=== PATIENT | female | born 1995 | race African-American/Black ===

== ENCOUNTER 2016-08-15 07:22 | Outpatient (CLI) | payer OTHER | END 2016-08-15 23:59 | DX: Z36 Encounter for antenatal screening of mother (principal) ==

== ENCOUNTER 2016-09-21 09:53 | Outpatient (CLI) | payer OTHER ==
[2016-09-21 10:35] LABS: BASOPHILS % (AUTO) 0.5 %; EOSINOPHILS % (AUTO) 0.7 %; HGB - HEMOGLOBIN 11.9 g/dL (12.0-16.0); LYMPHOCYTES # (AUTO) 1.9 10^3/uL (1.5-3.5); LYMPHOCYTES % (AUTO) 33.7 %; MEAN CORPUSCULAR HEMOGLOBIN 29.5 pg (27.0-31.0); MEAN CORPUSCULAR VOLUME 84.2 fL (81.0-99.0); MEAN PLATELET VOLUME 7.3 fL (7.9-10.8); MONOCYTES # (AUTO) 0.4 10^3/uL (0.0-1.0); MONOCYTES % (AUTO) 7.1 %; NEUTROPHILS # (AUTO) 3.3 10^3/uL (1.5-6.6); RED BLOOD COUNT 4.03 10^6/uL (4.20-5.40); RED CELL DISTRIBUTION WIDTH 13.7 % (12.0-15.0); UNCORRECTED WHITE BLOOD COUNT 5.7 x10^3/uL; WHITE BLOOD COUNT 5.7 x10^3/uL (4.8-10.8)
[2016-09-21 10:42] LABS: BILIRUBIN,URINE NEGATIVE (NEGATIVE); PH,URINE 6.5 PH (5.0-7.5)
[2016-09-21 10:51] LABS: BUN - BLOOD UREA NITROGEN < 5 mg/dL (6-20); CARBON DIOXIDE - CO2 26 mmol/L (21-32); CHLORIDE 104 mmol/L (101-111); CREATININE 0.3 mg/dL (0.4-1.0); GFR - MDRD 334 (>89); GLUCOSE 93 mg/dL (70-100); POTASSIUM 2.6 mmol/L (3.5-5.0); SODIUM 137 mmol/L (135-145)
[2016-09-27 13:33] LABS: TEST RESULT REPORT (())
== END 2016-09-21 09:54 | disposition home or self-care (01) ==
LOC: LAB 09:53
PROVIDERS: ATTEND Nurse Practitioner Obstetrics & Gynecology
DX: Z36 Encounter for antenatal screening of mother (principal)
CPT/HCPCS: 36415; 80048; 81001; 81599; 85025; 86762; 86850; 86900; 86901; 87340; 87389

== ENCOUNTER 2016-09-21 16:39 | Observation (INO) | payer OTHER ==
[2016-09-21] MEDS ORDERED: SODIUM CHLORIDE FLUSH 0.9% 10 ML SYRINGE IVP ONE ×2 (16:53→21:31)
[2016-09-21] MEDS: DEXTROSE 5%-0.45% NACL 1,000 ML IV SCH (17:51)
[2016-09-21] MEDS: POTASSIUM CHLOR 10 MEQ/100 ML 100 ML IV SCH ×4 (17:52→23:50)
[2016-09-21] MEDS ORDERED: ACETAMINOPHEN 325 MG TABLET PO PRN (20:26)
[2016-09-21] MEDS ORDERED: diphenhydrAMINE 25 MG CAPSULE PO SCH (20:29)
[2016-09-21] MEDS ORDERED: DEXTROSE 5%-0.45% NACL 1,000 ML IV SCH (21:38)
[2016-09-21] MEDS: ONDANSETRON 4 MG/2 ML VIAL IVP PRN (21:41)
[2016-09-22] MEDS: DEXTROSE 5%-0.45% NACL 1,000 ML IV SCH (01:23)
[2016-09-22] MEDS: POTASSIUM CHLOR 10 MEQ/100 ML 100 ML IV SCH ×2 (01:54→04:01)
[2016-09-22] MEDS: ONDANSETRON 4 MG/2 ML VIAL IVP PRN (05:28)
[2016-09-22] MEDS ORDERED: SODIUM CHLORIDE FLUSH 0.9% 10 ML SYRINGE IVP ONE (07:51)
[2016-09-22 09:35] LABS: BUN - BLOOD UREA NITROGEN < 5 mg/dL (6-20); CALCIUM 8.6 mg/dL (8.5-10.3); CARBON DIOXIDE - CO2 21 mmol/L (21-32); CHLORIDE 107 mmol/L (101-111); CREATININE 0.3 mg/dL (0.4-1.0); GFR - MDRD 334 (>89); GLUCOSE 89 mg/dL (70-100); POTASSIUM 3.3 mmol/L (3.5-5.0); SODIUM 135 mmol/L (135-145)
[2016-09-22 12:16] VITALS: BP 120/70
--- NOTE | 2016-09-23 07:28 | HISTORY & PHYSICAL EXAMINATION ---
DATE OF ADMISSION: 09/21/2016 IDENTIFICATION: The patient is a 21-year-old G5, P2 AB1, ectopic 1 female whose LMP was June 20, 2016. This makes her 13 weeks and 3 days today. She has an EDC of 2016 confirmed with 8-week ultrasound. CHIEF COMPLAINT: Nausea and vomiting, hyperemesis. HISTORY OF PRESENT ILLNESS: The patient was seen in today at which time her labs were drawn and she was noted to have a potassium of 2.6. Her sodium was within normal limits. CBC showed a hemoglobin of 11.9 and platelets were normal as well as white count. She has been having difficulty keeping anything down. She has an order for Zofran, but was denied by insurance company. She was trying to keep her first trimester free of any Zofran because of concerns about anomalies. She states that her last 2 pregnancies had difficulties with hyperemesis gravidarum. These required IV fluid hydration. She also had one of these that required hospitalization. She gives a strong family history of hyperemesis, which includes her mother, as well as sister. She states she is having difficulty getting any fluids or foods down and is voiding only a minimal amount at this time. PAST MEDICAL HISTORY: Positive for hyperemesis gravidarum. PAST SURGICAL HISTORY: Negative for any C-sections. D and C, she did have an ectopic in the past with her first . ALLERGIES: NONE KNOWN. CURRENT MEDICATIONS: Those of Diclegis, as well as vitamins. HABITS: The patient denies use of alcohol, tobacco, or street or addictive drugs. 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 PHYSICAL EXAMINATION: The patient is a well-developed, well-nourished female. She is no acute distress at this time. Mucous membranes are dry. HEENT: Pupils are equal, round. Extraocular muscles are intact. There is no evidence of any scleral icterus. Mouth is clear with dry membranes. HEART: Regular rate and rhythm without murmurs. LUNGS: Nicolas are clear without rales or wheezes. BACK: No spinal or CVA tenderness noted. ABDOMEN: The patient was noted to have heart tones at her visit today. EXTREMITIES: DTRs are +2. There was no evidence of any clonus. IMPRESSION: 1. 13 weeks and 2 days. 2. Hyperemesis gravidarum with electrolyte imbalance. PLAN: We will administer IV fluids of D5 half normal with 10 of K runs. She will get 6 of these. She will have repeat electrolytes at midnight. If this is not sufficient, we will administer 4 more runs of potassium. Will also administer Zofran to help with her diet. JOB #: [id number] EXT JOB #:[id number] [facility]
== END 2016-09-22 10:45 | disposition home or self-care (01) ==
LOC: WFO 16:39 → OB 16:40 → WFO 18:17 → OB 18:18
PROVIDERS: ADMIT Obstetrics & Gynecology; ATTEND Obstetrics & Gynecology
DX: O21.1 Hyperemesis gravidarum with metabolic disturbance (principal); Z3A.13 13 weeks gestation of pregnancy; Z84.89 Family history of other specified conditions
CPT/HCPCS: 36415; 80048; 81001; 81599; 85025; 86762; 86850; 86900; 86901; 87340; 87389; 96361; 96374; 96376; A9270; G0378

== ENCOUNTER 2016-11-08 12:46 | Outpatient (CLI) | payer OTHER ==
--- NOTE | 2016-11-09 15:01 | Ultrasound Report ---
OB ULTRASOUND: 11/08/2016 CLINICAL INDICATION: anatomy. TECHNIQUE: Real-time scanning was performed with motor vehicle representative static images obtained. LAST MENSTRUAL PERIOD 06/19/2016 Clinical Age 20 weeks 2 days US Age 20 weeks 3 days EFW Hadlock 349 g EFW% Hadlock 50% Heart Rate 144 bpm EDC 03/26/2017 US EDC 03/25/2017 BPD [place] 20 weeks 3 days; Mean mm 47.5 HC [place] 20 weeks 4 days; Mean mm 181.7 AC [place] 20 weeks 3 days; Mean mm 151.6 FL Hadlock 20 weeks 2 days; Mean mm 32.9 Presentation moving Placental Location posterior Cervical Length 4.7 cm Amniotic Fluid 12.3 cm There is a single viable intrauterine gestation, in variable position. heart rate is 144 BPM. The placenta is posterior, without evidence of previa. Amniotic fluid volume is normal, with an ASHLEY of 12.3. By size, the fetus measures 20.5 weeks (20.3 weeks by LMP). The following anatomic structures were visualized and appear normal: The intracranial contents, including the ventricles and posterior fossa; the lips and orbits; the spine; the heart, including 4 chamber view and outflow tracts, and diaphragm; the abdominal contents, including the stomach, the bilateral kidneys, and urinary bladder, as well as a normal 3 vessel cord insertion; 4 limbs. No free fluid or adnexal lesion is appreciated. IMPRESSION: SINGLE VIABLE INTRAUTERINE GESTATION, WITH SIZE IN KEEPING WITH LMP DATING. NORMAL ANATOMIC SURVEY. [facility]
== END 2016-11-08 12:47 | disposition home or self-care (01) ==
LOC: DI 12:46
PROVIDERS: ATTEND Obstetrics & Gynecology
DX: Z36 Encounter for antenatal screening of mother (principal)
CPT/HCPCS: 76811

== ENCOUNTER 2017-02-27 17:01 | Outpatient (CLI) | payer OTHER | END 2017-02-27 17:02 | disposition home or self-care (01) | LOC: LAB.R 17:01 | PROVIDERS: ATTEND Obstetrics & Gynecology | DX: Z36.9 Encounter for antenatal screening, unspecified (principal); R82.99 Other abnormal findings in urine | CPT/HCPCS: 87081; 87086; 87797 ==

== ENCOUNTER 2017-03-07 04:43 | Outpatient (CLI) | payer OTHER ==
[2017-03-07 05:09] VITALS: BP 123/75
== END 2017-03-07 05:50 | disposition home or self-care (01) ==
LOC: WFO 04:43 → FBP 04:44 → WFO 05:50
PROVIDERS: ATTEND Obstetrics & Gynecology
DX: Z34.83 Encounter for supervision of other normal pregnancy, third trimester (principal)
CPT/HCPCS: 99213

== ENCOUNTER 2017-03-11 17:14 | Outpatient (CLI) | payer OTHER ==
[2017-03-11 20:58] VITALS: BP 132/78
== END 2017-03-11 21:06 | disposition home or self-care (01) ==
LOC: WFO 17:14 → FBP 17:16 → WFO 21:06
PROVIDERS: ATTEND Obstetrics & Gynecology
DX: Z34.83 Encounter for supervision of other normal pregnancy, third trimester (principal)
CPT/HCPCS: 99213

== ENCOUNTER 2017-03-11 23:33 | Inpatient (IN) | payer OTHER ==
[2017-03-12] MEDS ORDERED: LACTATED RINGERS 1,000 ML IV ONE (00:51)
[2017-03-12] MEDS ORDERED: SODIUM CHLORIDE FLUSH 0.9% 10 ML SYRINGE IVP ONE (00:52)
[2017-03-12] MEDS ORDERED: SODIUM CHLORIDE FLUSH 0.9% 10 ML SYRINGE IVP PRN ×2 (01:05→08:53)
[2017-03-12] MEDS ORDERED: PENICILLIN G POTASSIUM 5,000,000 UNIT in SODIUM CHLORIDE 0.9% MINIBAG 100 ML IV SCH (01:05)
[2017-03-12] MEDS: LACTATED RINGERS 1,000 ML IV SCH ×4 (01:51→10:25)
[2017-03-12 01:58] LABS: BASOPHILS % (AUTO) 0.1 %; EOSINOPHILS % (AUTO) 0.1 %; HCT - HEMATOCRIT 34.5 % (37.0-47.0); HGB - HEMOGLOBIN 10.9 g/dL (12.0-16.0); LYMPHOCYTES # (AUTO) 1.5 10^3/uL (1.5-3.5); LYMPHOCYTES % (AUTO) 10.5 %; MEAN CORPUSCULAR HEMOGLOBIN 24.8 pg (27.0-31.0); MEAN CORPUSCULAR HGB CONC 31.6 g/dL (32.0-36.0); MEAN CORPUSCULAR VOLUME 78.6 fL (81.0-99.0); MEAN PLATELET VOLUME 8.4 fL (7.9-10.8); MONOCYTES # (AUTO) 0.8 10^3/uL (0.0-1.0); MONOCYTES % (AUTO) 5.9 %; NEUTROPHILS # (AUTO) 11.6 10^3/uL (1.5-6.6); NEUTROPHILS % (AUTO) 83.4 %; NUCLEATED RED BLOOD CELLS AUTO 0.1 /100WBC; RED BLOOD COUNT 4.39 10^6/uL (4.20-5.40); RED CELL DISTRIBUTION WIDTH 16.8 % (12.0-15.0); UNCORRECTED WHITE BLOOD COUNT 13.9 x10^3/uL; WHITE BLOOD COUNT 13.9 x10^3/uL (4.8-10.8)
[2017-03-12] MEDS ORDERED: PENICILLIN G POTASSIUM 2,500,000 UNIT in SODIUM CHLORIDE 0.9% 100ML 100 ML IV SCH (05:45)
[2017-03-12] MEDS: SODIUM CHLORIDE FLUSH 0.9% 10 ML SYRINGE IVP SCH ×3 (06:16→20:26)
[2017-03-12] MEDS ORDERED: OXYTOCIN/SODIUM CHLORIDE 250 ML IV SCH (07:00)
[2017-03-12] MEDS ORDERED: fent/BUPIV 2 MCG/0.125% 250 ML EP ONE (08:41)
[2017-03-12] MEDS ORDERED: fentaNYL 100 MCG/2 ML VIAL IVP PRN (08:53)
[2017-03-12] MEDS ORDERED: LACTATED RINGERS 1,000 ML IV SCH ×2 (09:00→16:00)
[2017-03-12] MEDS ORDERED: ePHEDrine 50 MG/ML AMP IVP ONE (09:30)
[2017-03-12] MEDS ORDERED: ONDANSETRON 4 MG/2 ML VIAL IVP PRN (09:48)
[2017-03-12] MEDS: PENICILLIN G POTASSIUM 2,500,000 UNIT in SODIUM CHLORIDE 0.9% 100ML 100 ML IV SCH ×3 (10:40→19:55)
--- NOTE | 2017-03-12 12:09 | PROVIDER PROGRESS NOTE ---
Labor Progress Note - Uterine Monitoring Uterine Monitoring Mode: positive: External toco Contraction Frequency (min/apart): difficult to see Contraction Intensity: positive: Mild to moderate Uterine Resting Tone: positive: Soft - Monitoring Monitor Mode: positive: External ultrasound Heart Rate Baseline: 130 Heart Rate Variability: positive: Moderate (6-25 bmp) Accelerations: positive: Present, 15x15 Decelerations: positive: None Strip Review: positive: Category I - Vaginal Exam Dilation (in cm): 4 Effacement (%): 80 Station: -2 Cervical Position: Midposition - Labor Progress Note Labor Progress Note/Additional Text: pt had epidural placed and had Hypotension treated with fluids and ephedrine with good results. pit started and 4 miliunits now Will push pitocin
--- NOTE | 2017-03-12 12:14 | HISTORY & PHYSICAL EXAMINATION ---
Admit History - Instructions [place]/Slash: -Left hand click circles element as positive or present. -Right hand click slashes element as negative or not present. - Visit Reason Visit Reason: Contractions, Membranes rupture - : 5 Parity: 2 Care: positive: [facility] Complications This : positive: Other (GBS) Smoking Status: Never smoker - Mother's Labs GBS: positive: Group B Strep Positive Rubella Status: positive: Immune - Other Maternal History Other Maternal History: Pt came in last PM for contractions. no change sent home. SROM at 2300 clear fluid. Pt presented with Hx of GBS positive. PCN ordered. plan to get 2 doses in before starting pitocin. Meds/Allgy - Allergies Allergies/Adverse Reactions: Allergies Allergy/AdvReac Type Severity Reaction Status Date / Time No Known Drug Allergies Allergy Verified 09/21/16 20:46 Physical - Abdominal Exam Vital Signs: Temp Pulse Resp BP Pulse Ox 36.8 C 127 H 20 128/90 H 97 03/11/17 23:47 03/11/17 23:47 03/11/17 23:47 03/11/17 23:47 03/11/17 23:47
[2017-03-12] MEDS ORDERED: SODIUM CHLORIDE FLUSH 0.9% 10 ML SYRINGE IVP SCH (14:00)
[2017-03-12] MEDS ORDERED: LIDOCAINE-MPF 1% 5 ML VIAL ONE ×2 (15:23→15:32)
[2017-03-12] MEDS ORDERED: HYDROCORTISONE/PRAMOXINE 10 GM PR PRN (15:55)
[2017-03-12] MEDS ORDERED: HYDROCORTISONE 1% CREAM 28 GM TUBE PR PRN (15:55)
[2017-03-12] MEDS ORDERED: WITCH HAZEL/GLYCERIN 1 EACH MED..PAD TOP PRN (15:55)
[2017-03-12] MEDS ORDERED: OXYTOCIN/SODIUM CHLORIDE 250 ML IV ONE (15:55)
[2017-03-12] MEDS ORDERED: diphenhydrAMINE 25 MG CAPSULE PO PRN (15:55)
--- NOTE | 2017-03-12 16:06 | DELIVERY NOTE ---
Delivery Note - Labor Labor: positive: Spontaneous, Augmented by oxytocin - Delivery Method Infant Delivery Method: positive: Spontaneous vaginal delivery - Presentation Presentation: positive: Vertex, BLAZE - right occiput anterior - Nuchal Cord Nuchal Cord: positive: Present (X1 reduced at delivery) - Anesthetic Anesthetic Type: Anesthetic: positive: Lidocaine - 1% plain Volume: positive: Other - Amniotic Fluid Description Amniotic Fluid Description: positive: Clear - Episiotomy Type Episiotomy Type: positive: None - Laceration Laceration: positive: 2nd degree - Suture Suture Type: positive: Vicryl Suture Size: positive: 3-0 - Delivery Outcome Delivery Outcome: positive: Livebirth - [place] : positive: Placed in direct skin contact with mother, Bulb syringe, Martin used [place] sex: positive: Female - Cord Cord: positive: 3 vessels - Placenta Placenta: positive: Intact, Spontaneous - Estimated Blood Loss Estimated Blood Loss (in cc): 200 - Post Delivery Events Post Delivery Events: positive: No post delivery events - Delivery Comments (Free Text/Narrative) Delivery Comments (Free Text/Narrative): Pt prestnted to L&D for SROM at 2300 03/11/17. contraction were mild. because of her GBS +. pitocin was with held until second dose of PCN. Epidural was placed to 0902 but because of hypotension pit was not started at 1005. Pit was advanced to 10 lashawn units at which time good labor was achieved. She reached 9.5 cm at 1452 then art 1500 developed a strong need to push. Pt delivered at 1512 a live female with [place] of 9/9. over a second degree laceration. Placenta followed at 1518 was inspected and noted to be complete. her laceration was repaired with 3-0 vicril in the standard fashion. EBL 200 ml Manuelgth 6lb 11oz.
[2017-03-12] MEDS: IBUPROFEN 600 MG TABLET PO SCH ×2 (17:22→23:11)
[2017-03-12] MEDS: DOCUSATE SODIUM 100 MG CAPSULE PO SCH (20:26)
[2017-03-12] MEDS ORDERED: SIMETHICONE CHEW 80 MG TABLET PO SCH (22:00)
[2017-03-12] MEDS: ACETAMINOPHEN 325 MG TABLET PO PRN (23:11)
[2017-03-12] MEDS: oxyCODONE 5 MG TABLET PO PRN (23:11)
[2017-03-13] MEDS: oxyCODONE 5 MG TABLET PO PRN ×3 (04:10→14:07)
[2017-03-13] MEDS: ACETAMINOPHEN 325 MG TABLET PO PRN ×3 (04:10→14:07)
[2017-03-13] MEDS: IBUPROFEN 600 MG TABLET PO SCH ×3 (04:10→16:29)
[2017-03-13 06:22] LABS: BASOPHILS % (AUTO) 0.5 %; EOSINOPHILS # (AUTO) 0.1 10^3/uL (0.0-0.7); EOSINOPHILS % (AUTO) 0.9 %; HCT - HEMATOCRIT 29.3 % (37.0-47.0); HGB - HEMOGLOBIN 9.2 g/dL (12.0-16.0); LYMPHOCYTES # (AUTO) 2.2 10^3/uL (1.5-3.5); MEAN CORPUSCULAR HEMOGLOBIN 24.6 pg (27.0-31.0); MEAN CORPUSCULAR HGB CONC 31.5 g/dL (32.0-36.0); MEAN CORPUSCULAR VOLUME 78.3 fL (81.0-99.0); MEAN PLATELET VOLUME 8.5 fL (7.9-10.8); MONOCYTES # (AUTO) 0.9 10^3/uL (0.0-1.0); MONOCYTES % (AUTO) 9.8 %; NEUTROPHILS # (AUTO) 5.8 10^3/uL (1.5-6.6); NEUTROPHILS % (AUTO) 64.8 %; NUCLEATED RED BLOOD CELLS AUTO 0.1 /100WBC; RED BLOOD COUNT 3.74 10^6/uL (4.20-5.40); RED CELL DISTRIBUTION WIDTH 16.6 % (12.0-15.0); UNCORRECTED WHITE BLOOD COUNT 8.9 x10^3/uL; WHITE BLOOD COUNT 8.9 x10^3/uL (4.8-10.8)
--- NOTE | 2017-03-13 09:01 | PROVIDER PROGRESS NOTE ---
Subjective - Prog Note Date Prog Note Date: 03/13/17 Prog Note Time: 08:59 - Subjective Pt reports feeling: Improved (PPD#1 breast feeding without difficulty. Pain 07/06 , pt notes good pain control.) Objective - Vital Signs/Intake & Output Reviewed Vital Signs: Yes Vital Signs: Vital Signs x48h Pulse Resp BP Pulse Ox 03/13/17 02:24 81 16 108/62 100 Intake & Output: Intake & Output 03/10/17 03/11/17 03/12/17 03/13/17 23:59 23:59 23:59 23:59 Intake Total 5330 Output Total 2100 Balance 3230 - Objective General Appearance: positive: No acute distress, Alert Respiratory: positive: Chest non-tender, No respiratory distress Cardiovascular: positive: Regular rate & rhythm, No murmur Abdomen: positive: Non-tender, No organomegaly, Nml bowel sounds, Mass (U-2) Back: positive: Nml inspection. negative: CVA tenderness (R), CVA tenderness (L ) Extremities: negative: Calf tenderness, Yesika's sign/cords Neurologic/Psychiatric: positive: Oriented x3 - Lab Results Fish Bones: 03/13/17 06:05 Other Labs: Lab Results x24hrs 03/13/17 Range/Units 06:05 WBC 8.9 (4.8-10.8) x10^3/uL RBC 3.74 L (4.20-5.40) 10^6/uL Hgb 9.2 L (12.0-16.0) g/dL Hct 29.3 L (37.0-47.0) % MCV 78.3 L (81.0-99.0) fL MCH 24.6 L (27.0-31.0) pg MCHC 31.5 L (32.0-36.0) g/dL RDW 16.6 H (12.0-15.0) % Plt Count 253 (130-450) 10^3/uL MPV 8.5 (7.9-10.8) fL Neut # 5.8 (1.5-6.6) 10^3/uL Lymph # 2.2 (1.5-3.5) 10^3/uL Dawson # 0.9 (0.0-1.0) 10^3/uL Eos # 0.1 (0.0-0.7) 10^3/uL Baso # 0.0 (0.0-0.1) 10^3/uL Absolute Nucleated RBC 0.01 x10^3/uL Nucleated RBC % 0.1 /100WBC Assessment/Plan - Problem List (1) (spontaneous vaginal delivery) Impression: Pt is progressing well. Breast feeding Discussed controception, mastitis, bleeding and infection Discharge medication Motrin 800 Nor QD (2) Anemia Impression: Secondary to . Pt is taking PNV and Iron. Qualifiers: Anemia type: iron deficiency
--- NOTE | 2017-03-13 09:12 | Discharge Plan ---
Discharge Plan Disposition: 01 Home, Self Care Condition: Good Diet: Regular Activity Restrictions: Pelvic rest 6 weeks Shower Restrictions: No Driving Restrictions: No No Smoking: If you smoke, Please STOP! Call for help. Follow-up with: Deo Joyner MD [Provider Admit Priv/Credential] -
[2017-03-13] MEDS: DOCUSATE SODIUM 100 MG CAPSULE PO SCH (09:56)
[2017-03-13 13:29] VITALS: BP 127/72
--- NOTE | 2017-03-13 17:55 | Labor Flowsheet ---
Labor Flowsheet Datetime Report Generated by CPN: 03/13/2017 17:55 Datetime: 03/13/2017 13:22 VITAL SIGNS NBP Sys/Seema/Mean (mmHg): 127 : 72 : 84 Pulse: 88 LaborFlag: Labor Datetime: 03/13/2017 08:49 SpO2 (%): 100 Datetime: 03/12/2017 19:34 Temperature (F): 94.3 Temperature (C): 34.6 Temperature (C): 34.6 Datetime: 03/12/2017 15:18 Medication Comments: Post- pitocin rate started Datetime: 03/12/2017 15:12 UTERINE ACTIVITY Monitor Mode: External Frequency (min): 2-3 Quality: Strong Duration (sec): 60-80 Pattern: Normal: <= 5 Contractions in 10 Minutes Resting Tone (Palpate): Relaxed ASSESSMENT A Monitor Mode: Athletic Coach Interventions for FHR: Ultrasound Adjusted FHR Baseline Rate : 120 Variability: Moderate 6-25 bpm Accelerations: None Decelerations: Prolonged Category: Category II Comments: Poor tracing; appears to be a deceleration from [id number] and a second starting at 1506 Oxygen Method: Room Air Provider Notified (Name): Dr. Joyner Communication Comments: OB provider aware of deceleration Datetime: 03/12/2017 15:03 STAGE 2 Pushing Position: Pushing with Contractions; Pushing Lithotomy Pushing Progress: Descent with Pushing Datetime: 03/12/2017 14:52 VAGINAL EXAM Dilatation (cm): 9.0 Effacement (%): 100 Station: 0 Exam by: A Bauch, RN Vaginal Exam Comments: Anterior lip Datetime: 03/12/2017 14:46 Anesthesia Comments: Pump increased to 10mL, and bolus doses to 6mL per THERAPY MANAGER Datetime: 03/12/2017 14:27 MEDICATIONS Pitocin (milliunits): Increased to @ 11 Datetime: 03/12/2017 14:23 Antibiotics: Penicillin IV (Units) @ 2,500,000 Datetime: 03/12/2017 14:13 Patient Position/Activity: Right Lateral Datetime: 03/12/2017 14:09 I/O Interventions: Up to BR Patient Care Comments: Up to bedside commode Datetime: 03/12/2017 12:36 Epidural Procedure Other: Pump Started Datetime: 03/12/2017 12:00 Monitor Interventions for UA: [place] Adjusted Datetime: 03/12/2017 11:20 Hygiene: Cathleen Care; Underpad Changed Datetime: 03/12/2017 11:00 Stage of : Labor COMMUNICATION Communication: Report Given to @ Dr. Giem Notification Reason: Status Update; Labor Status Datetime: 03/12/2017 10:15 FHR Baseline Changes: No Baseline Change Datetime: 03/12/2017 09:39 Anesthesia Interventions Other: Ephedrine Datetime: 03/12/2017 09:30 Contraction Comments: 2 contractions traced Datetime: 03/12/2017 09:25 PATIENT CARE IV/Blood Work: IV Bolus Started Datetime: 03/12/2017 09:16 Epidural Procedure: Loading Dose Datetime: 03/12/2017 08:54 PROCEDURE TIME OUT Procedure Verify: Correct Patient Identity; Correct Side and Site are Marked; Accurate Procedure Co nsent Form; Agreement on Procedure to be Done; Correct Patient Position; Safety Precautions Based on Patient History or Medication Use ANESTHESIA Anesthesia Plans: Epidural Epidural Positioning: Sitting Datetime: 03/12/2017 08:00 Respirations: 20 Datetime: 03/12/2017 06:24 Temperature Route: Oral Datetime: 03/12/2017 04:20 PAIN Pain Scale: 4 Pain Presence: Intermittent Pain Type: Contraction Pain Location: Abdomen Pain Coping: Talking Through Contractions; Sleeping
--- NOTE | 2017-03-14 10:15 | DISCHARGE SUMMARY ---
DATE OF ADMISSION: 03/12/2017 DATE OF DISCHARGE: 03/13/2017 ADMITTING DIAGNOSES 1. 38 weeks' gestation. 2. Spontaneous rupture of membranes. 3. Labor. 4. Group B streptococcus positive. DISCHARGE DIAGNOSES 1. 38 weeks' gestation. 2. Spontaneous rupture of membranes. 3. Labor. 4. Group B streptococcus positive. 5. Second-degree laceration. PROCEDURES 1. Penicillin prophylaxis for group B streptococcus. 2. Epidural. 3. Pitocin augmentation. 4. Assisted vaginal delivery. 5. Second-degree laceration with repair. PRESENTING HISTORY: Patient is a 22-year-old. She is G5, P2. She presents with labor, which was off a nd on the previous day, but spontaneously ruptured at 2300 on the . She was noted to be GBS posit elieser. Penicillin was ordered. On admission, her cervix was felt to be 3 cm. She was 80%, -3. LABORATORY: CBC on admission showed a white count of 13.9, her hemoglobin 10.9, hematocrit was 34.5. Her MCV was 78.6, platelets were 234. On discharge, her white count was 8.9, hemoglobin 9.2, hematocr it was 29.3, platelet count was 253. HOSPITAL COURSE: Patient was admitted, started on penicillin prophylaxis for her group B strep positi ve; this was continued every 4 hours throughout her labor. She did not start any Pitocin until after her second dose of antibiotics. She had an epidural placed. At this time, she had difficulty with hyp otension, which responded to IV fluids as well as ephedrine. Her strip remained category 1 throughout . She had Pitocin administered, and when this reached 10 international units, she had strong contract ions. Her second stage was very short, and she delivered a live infant over a second-degree laceratio n. Her infant's Apgars were 9 and 9. The infant weighed 6 pounds 11 ounces. Her repair was accomplish ed utilizing 3-0 Vicryl. Estimated blood loss was roughly 200 mL. Her course has been unremarkable. She is eating a regular diet. She has had adequate pain control. She plans to use Motrin for her pain control at home. She has been counseled regarding breas tfeeding and the need for contraception. Prescription for Nor QD has been written; her plans to have a vasectomy in the near future. She is instructed to watch for infection and mastitis, as wel l as excessive bleeding. She is to follow up in the clinic in 6 weeks. JOB #: [id number] EXT JOB #:[id number]
== END 2017-03-13 17:05 | disposition home or self-care (01) | DRG 775 ==
LOC: FBP 23:33 → WFO 23:33 → FBP 03-12 00:06
PROVIDERS: ADMIT Obstetrics & Gynecology; ATTEND Obstetrics & Gynecology
PROC: 0KQM0ZZ Repair Perineum Muscle, Open Approach (ICD-10-PCS; principal; 2017-03-12)
PROC: 10E0XZZ Delivery of Products of Conception, External Approach (ICD-10-PCS; 2017-03-12)
DX: O42.02 Full-term premature rupture of membranes, onset of labor within 24 hours of rupture (principal); O99.824 Streptococcus B carrier state complicating childbirth; O70.1 Second degree perineal laceration during delivery; O99.02 Anemia complicating childbirth; D50.8 Other iron deficiency anemias; Z3A.38 38 weeks gestation of pregnancy; Z37.0 Single live birth
CPT/HCPCS: 36415; 85025; 99212